=== PATIENT | male | born 1950 | race Caucasian/White ===

== ENCOUNTER 2017-06-15 21:55 | Emergency (ER) | payer BC, MEDICARE ==
[~2017-06-15] VITALS: Ht 177.8 cm; Wt 93.0 kg
[2017-06-15 21:59] VITALS: BP 129/58; PULSE 80; RESP 20; TEMP 99.1
[2017-06-15] MEDS ORDERED: CLOM50TA2 (22:10)
--- NOTE | 2017-06-15 22:14 | PD ---
HPI Chief Complaint: Laceration/Skin Injury Time Seen by Provider: 22:11 Travel History International Travel<30 days: No Contact w/Intl Traveler<30days: No Traveled to known affect area: No History of Present Illness HPI accidentally stepped on lawrence, got cut to second toe underside, on right foot. last tetanus less than 5 years ago. PFSH Social History Tobacco Use: No Allergies-Medications (Allergen,Severity, Reaction): Coded Allergies: No Known Allergies (Verified Allergy, Unknown, 06/15/17) Reported Meds & Prescriptions Reported Meds & Active Scripts Active Reported Clomiphene (Clomiphene Citrate) 50 Mg Tab Review of Systems Except as stated in HPI: all other systems reviewed are Neg General / Constitutional: No: Fever Eyes: No: Visual changes HENT: No: Headaches Cardiovascular: No: Chest Pain or Discomfort Respiratory: No: Shortness of Breath Gastrointestinal: No: Abdominal Pain Genitourinary: No: Dysuria Musculoskeletal: No: Pain Skin: Positive Other (small lac to second toe right) Neurologic: No: Weakness Psychiatric: No: Depression Endocrine: No: Polydipsia Hematologic/Lymphatic: No: Easy Bruising Physical Exam Narrative GENERAL: SKIN: Warm and dry. ventral aspect of right second toe, has a c shaped 2cm lac , no tendon involvement, nvi with good servicing manager HEAD: Atraumatic. Normocephalic. EYES: Pupils equal and round. No scleral icterus. No injection or drainage. ENT: No nasal bleeding or discharge. Mucous membranes pink and moist. NECK: Trachea midline. No JVD. CARDIOVASCULAR: Regular rate and rhythm. RESPIRATORY: No accessory muscle use. Clear to auscultation. Breath sounds equal bilaterally. GASTROINTESTINAL: Abdomen soft, non-tender, nondistended. Hepatic and splenic margins not palpable. MUSCULOSKELETAL: Extremities without clubbing, cyanosis, or edema. No obvious deformities. NEUROLOGICAL: Awake and alert. No obvious cranial nerve deficits. Motor grossly within normal limits. Five out of 5 muscle strength in the arms and legs. Normal speech. PSYCHIATRIC: Appropriate mood and affect; insight and judgment normal. Data Data Last Documented VS Orders Orders Tetanus/Diphtheria Tox Adult (Tetanus/Di (06/15/17 22:15) Ed Discharge Order (06/15/17 22:15) MDM Medical Decision Making Medical Screen Exam Complete: Yes Emergency Medical Condition: Yes Medical Record Reviewed: Yes Differential Diagnosis n/a Narrative Course patient's laceration repaired, tetanus is less than 5yrs old, no boost required Procedures Procedure Narrative area cleaned in nl sterile fashion, after irrigation dermabond use for closure, pt tolerated well Diagnosis Primary Impression: second toe lac s/p dermabond Patient Instructions: General Instructions, Skin Adhesive Care (ED) Disposition: 01 DISCHARGE HOME Condition: Stable Ortiz Lombardo MD Jun 15, 2017 22:14
[2017-06-15] MEDS ORDERED: TETANUS/DIPHTHERIA TOXOID ADULT 0.5 ML VIAL IM ONE (22:15)
== END 2017-06-15 22:41 | disposition home or self-care (01) ==
LOC: PHEFT 21:55
DX: S91.114A Laceration without foreign body of right lesser toe(s) without damage to nail, initial encounter (principal); W22.8XXA Striking against or struck by other objects, initial encounter; Z23 Encounter for immunization
CPT/HCPCS: 12001; 90471; 90714